=== PATIENT | female | born 1955 | race Caucasian/White ===

== ENCOUNTER 2016-12-12 16:40 | Outpatient (CLI) | payer MEDICARE ==
[2016-12-12 17:08] LABS: ALT (SGPT) 33 U/L (0-55); AST (SGOT) 21 U/L (5-34); Albumin 3.9 g/dL (3.4-4.8); Alkaline Phosphatase 79 U/L (40-150); Anion Gap 14 mmol/L (10-20); BUN (Urea Nitrogen) 9 mg/dL (9.8-20.1); Bilirubin, Total 0.3 mg/dL (0.2-1.2); Calc. Creatinine Clearance 0 mL/min (70-130); Calcium 10.1 mg/dL (7.8-10.44); Carbon Dioxide 28 mmol/L (23-31); Chloride 105 mmol/L (98-107); Estimated GFR-MDRD 76; Globulin 2.7 g/dL (2.4-3.5); Glucose 103 mg/dL (80-115); Potassium 4.5 mmol/L (3.5-5.1); Protein, Total 6.6 g/dL (5.8-8.1); Sodium 142 mmol/L (136-145)
== END 2016-12-12 16:41 | disposition home or self-care (01) ==
LOC: MADLABBHPM 16:40
PROVIDERS: ATTEND Family Medicine
DX: T50.901D Poisoning by unspecified drugs, medicaments and biological substances, accidental (unintentional), subsequent encounter (principal); N17.9 Acute kidney failure, unspecified
CPT/HCPCS: 36415; 80053

== ENCOUNTER 2017-06-03 05:15 | Emergency (ER) | payer MEDICARE | END 2017-06-03 06:24 | disposition left against medical advice (07) | LOC: MADERS 05:15 | DX: G89.29 Other chronic pain (principal); I10 Essential (primary) hypertension; M81.0 Age-related osteoporosis without current pathological fracture; F41.9 Anxiety disorder, unspecified; F32.9 Major depressive disorder, single episode, unspecified; F17.210 Nicotine dependence, cigarettes, uncomplicated; Z79.899 Other long term (current) drug therapy | CPT/HCPCS: 99283 ==

== ENCOUNTER 2017-06-16 21:54 | Emergency (ER) | payer MEDICARE ==
[2017-06-16] MEDS ORDERED: Doxycycline 100 MG CAP ONE (22:41)
== END 2017-06-16 22:46 | disposition home or self-care (01) ==
LOC: MADERS 21:54
DX: J20.9 Acute bronchitis, unspecified (principal); J44.9 Chronic obstructive pulmonary disease, unspecified; I10 Essential (primary) hypertension; I72.9 Aneurysm of unspecified site; M81.0 Age-related osteoporosis without current pathological fracture; F41.9 Anxiety disorder, unspecified; F32.9 Major depressive disorder, single episode, unspecified; F17.210 Nicotine dependence, cigarettes, uncomplicated; Z79.899 Other long term (current) drug therapy
CPT/HCPCS: 99283

== ENCOUNTER 2017-10-01 03:12 | Emergency (ER) | payer MEDICARE ==
[2017-10-01] MEDS ORDERED: Diazepam 5 MG TAB ONE (04:36)
== END 2017-10-01 04:47 | disposition home or self-care (01) ==
LOC: MADERS 03:12
DX: F41.9 Anxiety disorder, unspecified (principal); G47.00 Insomnia, unspecified; I10 Essential (primary) hypertension; F32.9 Major depressive disorder, single episode, unspecified; Z87.891 Personal history of nicotine dependence
CPT/HCPCS: J7620

== ENCOUNTER 2017-11-14 12:56 | Outpatient (CLI) | payer MEDICARE ==
--- NOTE | 2017-11-14 14:51 | ULT ---
PELVIC ULTRASOUND: Date: 11/14/17 HISTORY: Bilateral suprapubic pain x1 month. Tubal ligation in 1983. COMPARISON: None. TECHNIQUE: Transabdominal and endovaginal imaging of the pelvis is performed. FINDINGS: Uterus is identified, measuring 7.9 x 4.2 x 3.0 cm. There is a solid echotexture hypoechoic mass penny g the fundus of the uterus measuring 1.9 x 1.7 x 2.0 cm. Suboptimal evaluation of the myometrium. Suboptimal evaluation of the endometrium. Neither ovary is a ppreciated. There is a small amount of free fluid anterior to the uterus. IMPRESSION: Solid echotexture mass at the level of the uterine fundus. Findings are worrisome for uterine leiomyo burden until proven otherwise. Better interrogation with pelvic MR is recommended. POS: [facility]
== END 2017-11-14 12:57 | disposition home or self-care (01) ==
LOC: MADULT 12:56
PROVIDERS: ATTEND Family Medicine
DX: R10.2 Pelvic and perineal pain (principal); N85.8 Other specified noninflammatory disorders of uterus
CPT/HCPCS: 76856

== ENCOUNTER 2018-09-06 03:02 | Emergency (ER) | payer MEDICARE ==
[2018-09-06 03:44] LABS: #Basophils 0.1 thou/uL (0.0-0.2); #Eosinphils 0.3 thou/uL (0.0-0.7); #Lymphocytes 4.5 thou/uL (1.20-3.40); #Monocytes 0.8 thou/uL (0.11-0.59); #Neutrophils 4.5 thou/uL (1.40-6.50); %Basophils 1.1 % (0.0-1.0); %Eosinophils 3.1 % (0.0-10.0); %Lymphocytes 43.9 % (21.0-51.0); %Monocytes 8.1 % (0.0-10.0); %Neutrophils 43.8 % (42.0-75.0); Hemoglobin 12.3 g/dL (12.0-16.0); Mean Corpuscular HGB CONC 33.2 g/dL (32.0-36.0); Mean Corpuscular Hemoglobin 29.5 pg (27.0-31.0); Mean Corpuscular Volume 88.8 fL (78.0-98.0); Mean Platelet Volume 9.1 fL (7.4-10.4); Platelet Count 280 thou/uL (130-400); RBC Distribution Width 12.3 % (11.5-14.5); Red Blood Cell (RBC) Count 4.15 mill/uL (4.20-5.40); White Blood Cell (WBC) Count 10.2 thou/uL (4.8-10.8)
[2018-09-06 04:02] LABS: Bilirubin Negative (Negative); Blood, Urine Negative (Negative); Clarity Clear (Clear); Glucose, Urine (Dipstick) Negative (Negative); Leukocyte Trace (Negative); Nitrite Negative (Negative); Protein, Urine (Dipstick) Negative (Neg-Trace); Urobilinogen 0.2 mg/dL (0.2-1.0)
[2018-09-06 04:03] LABS: Specific Gravity, Urine 1.004 (1.002-1.036)
[2018-09-06 04:06] LABS: ALT (SGPT) 30 U/L (8-55); AST (SGOT) 27 U/L (5-34); Albumin 4.3 g/dL (3.4-4.8); Alkaline Phosphatase 132 U/L (40-150); Anion Gap 19 mmol/L (10-20); BUN (Urea Nitrogen) 23 mg/dL (9.8-20.1); Bilirubin, Total 0.7 mg/dL (0.2-1.2); Calc. Creatinine Clearance 0 mL/min (70-130); Calcium 9.3 mg/dL (7.8-10.44); Carbon Dioxide 22 mmol/L (23-31); Chloride 96 mmol/L (98-107); Estimated GFR-MDRD 41; Globulin 2.4 g/dL (2.4-3.5); Glucose 89 mg/dL (80-115); Potassium 3.2 mmol/L (3.5-5.1); Protein, Total 6.7 g/dL (6.0-8.3); Sodium 134 mmol/L (136-145)
[2018-09-06 04:11] LABS: Bacteria/HPF None Seen HPF (None Seen); RBC/HPF None Seen HPF (0-3); Squamous Epithelial 0-3 HPF (0-3); WBC/HPF 0-3 HPF (0-3)
[2018-09-06 04:12] LABS: Amphetamine Not Detected (NotDetected); Barbiturates Screen Not Detected (NotDetected); Benzodiazepine Screen Not Detected (NotDetected); Cocaine Metabolite Screen Not Detected (NotDetected); Medtox Control Line Valid? VALID (VALID); Methadone Not Detected (NotDetected); Methamphetamine Not Detected (NotDetected); Opiate Screen Detected (NotDetected); Oxycodone Screen Not Detected (NotDetected); Phencyclidine (PCP) Not Detected (NotDetected); THC/Cannabinoid Screen Not Detected (NotDetected); Tricyclic Screen Not Detected (NotDetected)
[2018-09-06] MEDS ORDERED: Iopamidol 370 76% 125 ML VIAL FS ONE (05:40)
--- NOTE | 2018-09-06 07:54 | CT ---
PRELIMINARY REPORT/[facility]/EMERGENTY AFTER-HOURS PROCEDURE CT Angiography Chest With Contrast EXAM DATE/TIME: 09/06/2018 4:40 AM CLINICAL HISTORY: 63 years old, female; Pain; Chest pain and chest pressure; Right-sided chest pain; Patient HX: Dyspne a; Elevated d-dimer; HX of hypertension TECHNIQUE: Axial computed tomographic angiography images of the chest with intravenous contrast using CT angiogr aphy protocol. All CT scans at this facility use at least one of these dose optimization techniques: automated expos ure control; mA and/or kV adjustment per patient size (includes targeted exams where dose is matched to clinical indication); or iterative reconstruction. MIP reconstructed images were created and revie wed. COMPARISON: No relevant prior studies available. FINDINGS: Pulmonary arteries: There is no evidence of peripheral filling defects within the pulmonary arterial circulation to suggest pulmonary embolism. Aorta: The aorta demonstrates mild atherosclerotic calcification. Great vessels off aortic arch: There is atherosclerotic calcification involving the LEFT subclavian a rtery resulting in moderate stenosis. Lungs: There is subpleural atelectasis of the dependent portions of the lungs. Pleural space: Normal. No pneumothorax. No pleural effusion. Heart: Normal. No cardiomegaly. No pericardial effusion. Liver: There are liver hypodensities compatible with cysts or hemangiomas. Lymph nodes: Unremarkable. No enlarged lymph nodes. Bones/joints: Unremarkable. No acute fracture. Soft tissues: Unremarkable. IMPRESSION: There is no CT evidence of acute pulmonary embolism. Thank you for allowing us to participate in the care of your patient. Dictated and Authenticated by: Ervin Blackwell MD 09/06/2018 5:52 AM Central Time ([place] & [place]) FINAL REPORT CT ARTERIOGRAM CHEST WITH IV CONTRAST AND 3D MIP IMAGING: DATE: 09/06/2018. TIME: Performed on an emergency basis at 0446 hours. HISTORY: Chest pain. Dyspnea. FINDINGS: Agree with the preliminary report by Dr. Blackwell from [facility]. No CT evidence of pulmonary embolus. Chronic-type findings as detailed in the preliminary report. POS: [facility]
--- NOTE | 2018-09-06 07:57 | RAD ---
CHEST 2 VIEWS: HISTORY: Chest pain. COMPARISON: Chest radiograph from 2017. FINDINGS: Lungs are clear. No pneumothorax or effusion. Cardiac silhouette and mediastinal contours are withi n normal limits. IMPRESSION: No acute intrathoracic abnormality. POS: [facility]
== END 2018-09-06 07:20 | disposition home or self-care (01) ==
LOC: MADERS 03:02
DX: J06.9 Acute upper respiratory infection, unspecified (principal); J98.01 Acute bronchospasm
CPT/HCPCS: 71046; 71275; 80053; 80306; 81003; 81015; 84484; 85025; 85379; 93005; 94640; 94760; J7620

== ENCOUNTER 2018-09-08 08:45 | Emergency (ER) | payer MEDICARE | END 2018-09-08 09:42 | disposition home or self-care (01) | LOC: MADERS 08:45 | DX: K59.00 Constipation, unspecified (principal); I10 Essential (primary) hypertension; F41.9 Anxiety disorder, unspecified; M81.0 Age-related osteoporosis without current pathological fracture; Z79.899 Other long term (current) drug therapy | CPT/HCPCS: 99281 ==

== ENCOUNTER 2019-02-07 11:09 | Outpatient (CLI) | payer MEDICARE ==
[2019-02-07 11:36] LABS: #Basophils 0.1 thou/uL (0.0-0.2); #Eosinphils 0.4 thou/uL (0.0-0.7); #Lymphocytes 3.7 thou/uL (1.20-3.40); #Monocytes 0.6 thou/uL (0.11-0.59); #Neutrophils 2.9 thou/uL (1.40-6.50); %Basophils 1.2 % (0.0-1.0); %Eosinophils 5.7 % (0.0-10.0); %Lymphocytes 47.8 % (21.0-51.0); %Monocytes 7.8 % (0.0-10.0); %Neutrophils 37.5 % (42.0-75.0); Hemoglobin 12.5 g/dL (12.0-16.0); Mean Corpuscular HGB CONC 31.8 g/dL (32.0-36.0); Mean Corpuscular Volume 91.1 fL (78.0-98.0); Mean Platelet Volume 8.2 fL (7.4-10.4); Platelet Count 311 thou/uL (130-400); RBC Distribution Width 13.4 % (11.5-14.5); Red Blood Cell (RBC) Count 4.32 mill/uL (4.20-5.40); White Blood Cell (WBC) Count 7.6 thou/uL (4.8-10.8)
[2019-02-07 11:54] LABS: ALT (SGPT) 16 U/L (8-55); AST (SGOT) 15 U/L (5-34); Albumin 4.1 g/dL (3.4-4.8); Alkaline Phosphatase 108 U/L (40-150); Anion Gap 11 mmol/L (10-20); BUN (Urea Nitrogen) 5 mg/dL (9.8-20.1); Bilirubin, Total 0.2 mg/dL (0.2-1.2); Calc. Creatinine Clearance 0 mL/min (70-130); Calcium 9.4 mg/dL (7.8-10.44); Carbon Dioxide 27 mmol/L (23-31); Cardiac Risk 4.7 (Less than 4.5); Chloride 106 mmol/L (98-107); Cholesterol 182 mg/dl (< 200 Desired); Estimated GFR-MDRD 63; Globulin 2.9 g/dL (2.4-3.5); Glucose 99 mg/dL (80-115); HDL Cholesterol 39 mg/dL (>60 Neg Risk); LDL Cholesterol, Calculated 112 mg/dL; Potassium 3.9 mmol/L (3.5-5.1); Sodium 140 mmol/L (136-145); Triglycerides 153 mg/dL (Less than 150)
--- NOTE | 2019-02-07 12:07 | RAD ---
Exam: XR Hip Rt 2-3 View HISTORY: Acute right hip pain. No history of trauma. COMPARISON: None FINDINGS: Postsurgical changes lower lumbar spine and lumbosacral junction are seen. No acute fracture, dislocation, or other acute osseous abnormality is identified. There is suggestion of a subtle lucency within the greater trochanter, but this is likely related to the trabecular pattern as there is no definite disruption of the cortex, and this is not appreciated on the oblique view. Minimal vascular calcific lesions are seen in the femoral artery. IMPRESSION: No acute osseous abnormality is identified.
--- NOTE | 2019-02-07 12:07 | RAD ---
Exam: XR Knee Rt 3 View HISTORY: Chronic right knee pain. COMPARISON: None FINDINGS: No acute fracture, dislocation, or other acute osseous abnormality is identified. IMPRESSION: No acute osseous abnormality is identified.
--- NOTE | 2019-02-07 12:13 | RAD ---
XR Knee Lt 3 View History: [Chronic knee pain] Comparison: None. Findings: No acute fracture or malalignment. Mild medial compartment joint narrowing. Mild chondrocal cinosis. Impression: Mild medial compartment degenerative disease.
--- NOTE | 2019-02-07 12:34 | RAD ---
Exam: XR Shoulder Rt 2 View HISTORY: Bilateral shoulder pain. No history of trauma. COMPARISON: None FINDINGS: There is minimal right acromioclavicular joint osteoarthritis. Degenerative changes are seen in the c ervical spine. No acute fracture, dislocation, or other acute osseous abnormality is identified. IMPRESSION: No acute osseous abnormality is identified.
--- NOTE | 2019-02-07 13:23 | RAD ---
LEFT SHOULDER 2 VIEWS: HISTORY: Bilateral shoulder pain without trauma. FINDINGS/IMPRESSION: There appear to be postoperative changes with resection of some of the distal left clavicle. No acut e fracture, dislocation, or other significant acute osseous abnormality. POS: [facility]
== END 2019-02-07 11:10 | disposition home or self-care (01) ==
LOC: MADLABBHPM 11:09
PROVIDERS: ATTEND Physical Medicine & Rehabilitation
DX: M25.561 Pain in right knee (principal); M25.562 Pain in left knee; M25.511 Pain in right shoulder; M25.512 Pain in left shoulder; M25.551 Pain in right hip; E78.2 Mixed hyperlipidemia; G89.4 Chronic pain syndrome; F41.1 Generalized anxiety disorder; I10 Essential (primary) hypertension; M17.12 Unilateral primary osteoarthritis, left knee; Z98.890 Other specified postprocedural states
CPT/HCPCS: 36415; 80053; 80061; 85025

== ENCOUNTER 2019-03-21 19:32 | Emergency (ER) | payer MEDICARE ==
[2019-03-21] MEDS ORDERED: Amlodipine 5 MG TAB ONE (20:53)
== END 2019-03-21 21:05 | disposition home or self-care (01) ==
LOC: MADERS 19:32
DX: I10 Essential (primary) hypertension (principal); F43.0 Acute stress reaction; F41.9 Anxiety disorder, unspecified; F32.9 Major depressive disorder, single episode, unspecified; F17.210 Nicotine dependence, cigarettes, uncomplicated; Z79.899 Other long term (current) drug therapy
CPT/HCPCS: 93005

== ENCOUNTER 2019-06-11 11:25 | Outpatient (CLI) | payer MEDICARE ==
--- NOTE | 2019-06-11 12:33 | RAD ---
LUMBAR SPINE SERIES 5 VIEWS INCLUDING FLEXION AND EXTENSION: Postoperative changes of the lower lumbar spine are noted with bilateral pedicles screws placed at L4 and S1. Spondylolisthesis of L4 on L5 is seen not definitely changing on these views. Left iliac s tent is incidentally seen. IMPRESSION: 1. Bony demineralization. 2. Postoperative changes of the lower lumbar spine. POS: [facility]
== END 2019-06-11 11:26 | disposition home or self-care (01) ==
LOC: MADRAD 11:25
PROVIDERS: ATTEND Physical Medicine & Rehabilitation
DX: M54.5 Low back pain (principal); M81.0 Age-related osteoporosis without current pathological fracture; Z98.890 Other specified postprocedural states
CPT/HCPCS: 72120

== ENCOUNTER 2021-08-11 14:04 | Outpatient (CLI) | payer MEDICARE | END 2021-08-11 14:05 | disposition home or self-care (01) | LOC: MADRAD 14:04 | PROVIDERS: ATTEND Family Medicine | DX: M25.551 Pain in right hip (principal); M25.552 Pain in left hip; M54.9 Dorsalgia, unspecified; M47.815 Spondylosis without myelopathy or radiculopathy, thoracolumbar region; M81.0 Age-related osteoporosis without current pathological fracture | CPT/HCPCS: 72080 ==

== ENCOUNTER 2021-10-05 15:15 | Outpatient (CLI) | payer MEDICARE | END 2021-10-05 15:16 | disposition home or self-care (01) | LOC: MADRAD 15:15 | PROVIDERS: ATTEND Family Medicine | DX: J44.1 Chronic obstructive pulmonary disease with (acute) exacerbation (principal); R05.8 Other specified cough | CPT/HCPCS: 71046 ==

== ENCOUNTER 2022-08-24 10:12 | Emergency (ER) | payer MEDICARE, OTHER | END 2022-08-24 10:50 | disposition home or self-care (01) | LOC: MADERS 10:12 | DX: I10 Essential (primary) hypertension (principal); F17.210 Nicotine dependence, cigarettes, uncomplicated; Z79.899 Other long term (current) drug therapy | CPT/HCPCS: 99283 ==

== ENCOUNTER 2022-08-30 06:42 | Emergency (ER) | payer OTHER ==
[2022-08-30] MEDS ORDERED: predniSONE 10 MG TAB ONE (08:35)
[2022-08-30] MEDS ORDERED: predniSONE 20 MG TAB ONE (08:35)
== END 2022-08-30 08:40 | disposition home or self-care (01) ==
LOC: MADERS 06:42
DX: J06.9 Acute upper respiratory infection, unspecified (principal)
CPT/HCPCS: 99283; J7512

== ENCOUNTER 2022-11-13 14:09 | Outpatient (CLI) | payer MEDICARE, OTHER | END 2022-11-13 14:10 | disposition home or self-care (01) | LOC: MADRAD 14:09 | PROVIDERS: ATTEND Internal Medicine | DX: M17.0 Bilateral primary osteoarthritis of knee (principal); J32.9 Chronic sinusitis, unspecified; M25.862 Other specified joint disorders, left knee; M11.261 Other chondrocalcinosis, right knee | CPT/HCPCS: 70220 ==

== ENCOUNTER 2023-04-13 14:07 | Outpatient (CLI) | payer OTHER | END 2023-04-13 14:08 | disposition home or self-care (01) | LOC: MADRAD 14:07 | PROVIDERS: ATTEND Nurse Practitioner Family | DX: R05.1 Acute cough (principal) | CPT/HCPCS: 71046 ==

== ENCOUNTER 2023-08-03 12:29 | Outpatient (CLI) | payer OTHER | END 2023-08-03 12:30 | disposition home or self-care (01) | LOC: MADRAD 12:29 | PROVIDERS: ATTEND Physical Medicine & Rehabilitation | DX: M25.551 Pain in right hip (principal); M25.511 Pain in right shoulder ==

== ENCOUNTER 2023-08-08 14:22 | Outpatient (CLI) | payer OTHER | END 2023-08-08 14:23 | disposition home or self-care (01) | LOC: MADRAD 14:22 | PROVIDERS: ATTEND Internal Medicine | DX: R05.9 Cough, unspecified (principal) | CPT/HCPCS: 71046 ==

== ENCOUNTER 2024-04-06 15:21 | Emergency (ER) | payer OTHER ==
[2024-04-06 17:04] LABS: SARS-CoV-2 E Target Negative; SARS-CoV-2 N2 Target Negative; SARS-CoV-2 NAA Rapid Test Not Detected (NotDetected); SARS-CoV-2 RdRP gene Negative
[2024-04-06] MEDS ORDERED: methylPREDNISolone Acetate 80 mg (1 mL) VIAL ONE (17:14)
== END 2024-04-06 17:31 | disposition home or self-care (01) ==
LOC: MADERS 15:21
DX: B34.9 Viral infection, unspecified (principal); I10 Essential (primary) hypertension; F17.210 Nicotine dependence, cigarettes, uncomplicated; Z79.82 Long term (current) use of aspirin; Z79.899 Other long term (current) drug therapy
CPT/HCPCS: 71046; 96372; J1040; U0002

== ENCOUNTER 2024-08-08 14:32 | Emergency (ER) | payer OTHER | END 2024-08-08 16:21 | disposition home or self-care (01) | LOC: MADERS 14:32 | DX: J44.1 Chronic obstructive pulmonary disease with (acute) exacerbation (principal); I10 Essential (primary) hypertension; F17.210 Nicotine dependence, cigarettes, uncomplicated | CPT/HCPCS: 71045; 93005 ==